=== PATIENT | female | born 2000 | race Caucasian/White ===

== ENCOUNTER → 2021-10-05 | Outpatient (CLI) | payer OTHER, BC ==
--- NOTE | 2021-10-05 17:09 | RAD ---
EXAM: XR LUMBAR SPINE 2-3V 10/05/2021 12:04 PM CLINICAL INDICATION: Low back pain COMPARISON: None TECHNIQUE: 3 views of the lumbar spine FINDINGS: 5 nonrib-bearing lumbar vertebral bodies. There is mild rightward curvature the lumbar spi ne centered at L3. No acute fracture. Alignment is normal. Disc spaces are maintained. Facet joints a re normal. IMPRESSION: Mild rightward curvature the lumbar spine. No acute osseous abnormality or degenerative disc disease. Electronically signed by: Marge Lebron MD (10/05/2021 5:07 PM) [id number]
== END ==
LOC: RAD 11:52
PROVIDERS: ATTEND Physician Assistant
DX: M43.8X6 Other specified deforming dorsopathies, lumbar region (principal)
CPT/HCPCS: 72100